=== PATIENT | male | born 1960 | race Caucasian/White ===

== ENCOUNTER → 2019-12-13 | Outpatient (CLI) | payer OTHER | LOC: SJCVCIMAG 10:33 | PROVIDERS: ATTEND Internal Medicine Cardiovascular Disease | DX: I65.23 Occlusion and stenosis of bilateral carotid arteries (principal) ==

== ENCOUNTER → 2019-12-20 | Outpatient (CLI) | payer OTHER | LOC: SJCVCIMAG 07:21 | PROVIDERS: ATTEND Internal Medicine Cardiovascular Disease | DX: I08.1 Rheumatic disorders of both mitral and tricuspid valves (principal); I48.91 Unspecified atrial fibrillation; J44.9 Chronic obstructive pulmonary disease, unspecified; F17.200 Nicotine dependence, unspecified, uncomplicated; Z79.82 Long term (current) use of aspirin; Z79.899 Other long term (current) drug therapy; Z98.890 Other specified postprocedural states; Z95.828 Presence of other vascular implants and grafts; Z86.73 Personal history of transient ischemic attack (TIA), and cerebral infarction without residual deficits ==

== ENCOUNTER → 2020-01-12 | Outpatient (CLI) | payer OTHER | LOC: SJCVCIMAG 12:46 | PROVIDERS: ATTEND Internal Medicine Cardiovascular Disease | DX: I71.00 Dissection of unspecified site of aorta (principal); F17.200 Nicotine dependence, unspecified, uncomplicated ==

== ENCOUNTER → 2020-01-31 | Outpatient (CLI) | payer OTHER ==
[~2020-01-31] MED LIST: ASA81BEC PO; BYSTOLIC10 MG PO; CIALIS5 MG PO; EDARBYCLOR 40-1 EAC1 PO; ELIQUIS5 MG PO; KLOR-CON M2020 MEQ PO; LEXAPRO 10 MG T10 M2 PO; PROAIR HFA8.5 GM INH; ROSUVASTATIN CA20 MG PO
== END ==
LOC: LAB 11:16
PROVIDERS: ATTEND Internal Medicine Cardiovascular Disease
DX: Z01.812 Encounter for preprocedural laboratory examination (principal); Z20.828 Contact with and (suspected) exposure to other viral communicable diseases

== ENCOUNTER → 2020-02-02 | Outpatient (CLI) | payer OTHER ==
[~2020-02-02] VITALS: Ht 190.5 cm; Wt 120.2 kg
[~2020-02-02] MED LIST changes: +PACERONE 200 M200 M1 PO; +STIOLTO RESPIMAT4 GM INH
[2020-02-02 07:28] VITALS: BP 157/100
--- NOTE | 2020-02-02 08:38 | EKG ---
[facility] [place] [address] ELECTROCARDIOGRAM REPORT Name: SHAHEEN CYR Room #: REG [facility]#: [id number] Admission: 02/02/20 Attend Phys: Jimmy Sandoval MD, Discharge: Date of : 58 Report #: [id number] THIS REPORT FOR: cc: Saida Carrasco MD, Molly MD Couchonnal, Luis F. MD ~ THIS REPORT FOR: //name// [facility] Test Date: 2020-02-02 Test Time: 08:30:25 Pat Name: SHAHEEN CYR Department: Room: Gender: [employer]rel [employer]s Solderer: [facility] : 1960 Requested By: Phil Ortiz Order Number: [id number] MD: Itz Walker Measurements Intervals Junction Rate: 54 P: 73 LA: 238 QRS: 76 QRSD: 133 T: 86 QT: 508 QTc: 482 Interpretive Statements Sinus rhythm Prolonged LA interval Nonspecific intraventricular conduction delay Borderline T abnormalities, lateral leads No previous ECG available for comparison Electronically Signed On 02-02-2020 8:37:58 CDT by Itz Walker [email or web address] <ELECTRONICALLY SIGNED> By: Itz Walker MD 02/02/2037 9 9 Itz Walker MD /EPI
== END | disposition home or self-care (01) ==
LOC: CATH 06:38
PROVIDERS: ATTEND Internal Medicine
DX: I48.91 Unspecified atrial fibrillation (principal); I08.1 Rheumatic disorders of both mitral and tricuspid valves; I10 Essential (primary) hypertension; J44.9 Chronic obstructive pulmonary disease, unspecified; E78.00 Pure hypercholesterolemia, unspecified; Z98.890 Other specified postprocedural states; G47.33 Obstructive sleep apnea (adult) (pediatric); Z79.899 Other long term (current) drug therapy; Z86.73 Personal history of transient ischemic attack (TIA), and cerebral infarction without residual deficits

== ENCOUNTER → 2020-02-12 | Outpatient (CLI) | payer OTHER ==
[~2020-02-12] MED LIST changes: -PACERONE 200 M200 M1 PO; -STIOLTO RESPIMAT4 GM INH
== END ==
LOC: LAB 08:10
PROVIDERS: ATTEND Internal Medicine Cardiovascular Disease
DX: Z01.812 Encounter for preprocedural laboratory examination (principal); Z20.828 Contact with and (suspected) exposure to other viral communicable diseases

== ENCOUNTER → 2020-02-12 | Outpatient (CLI) | payer OTHER ==
[2020-02-12 09:49] LABS: ABSOLUTE NEUTROPHILS 6.3 thou/uL (1.4-8.2); BASOPHILS 0.9 % (0.0-2.0); EOSINOPHILS 4.4 % (0.0-3.0); HEMOGLOBIN 14.1 gm/dL (14.0-18.0); LYMPHOCYTES 12.3 % (24.0-44.0); MCH 28.9 pg (26.0-34.0); MCHC 32.8 g/dL (28.0-37.0); MCV 88.1 fL (80.0-100.0); MONOCYTES 8.9 % (1.0-8.0); PLATELET COUNT 274 thou/uL (150-400); POLYS 73.5 % (36.0-66.0); RBC 4.88 mil/uL (4.50-6.00); RDW 14.7 % (10.5-14.5); WBC 8.6 thou/uL (4.0-11.0)
[2020-02-12 10:00] LABS: ALBUMIN 4.4 g/dL (3.4-5.0); CALCIUM 8.7 mg/dL (8.5-10.1); POTASSIUM 3.5 mmol/L (3.5-5.1); TOTAL BILIRUBIN 0.9 mg/dL (0.2-1.0); TOTAL PROTEIN 7.4 g/dL (6.4-8.2)
== END ==
LOC: CAT 09:05
PROVIDERS: ATTEND Internal Medicine Cardiovascular Disease
DX: I25.10 Atherosclerotic heart disease of native coronary artery without angina pectoris (principal); I48.91 Unspecified atrial fibrillation

== ENCOUNTER 2020-02-15 06:38 | Outpatient (CLI) | payer OTHER ==
[~2020-02-15] VITALS: Ht 190.5 cm; Wt 127.0 kg
[2020-02-15] VITALS (13 sets, daily range): BP systolic 137–169; BP diastolic 70–92
--- NOTE | ~2020-02-15 | P ---
[facility] [place] [address] PROCEDURE REPORT Name: SHAHEEN CYR [id number] Admission: 02/15/20 Attend Phys: Itz Walker MD Discharge: 02/16/20 Date of : 58 Report #: [id number] THIS REPORT FOR: cc: Saida Carrasco MD, Molly MD Couchonnal, Luis F. MD ~ CC: Itz Carrasco PREOPERATIVE DIAGNOSIS: Atrial fibrillation. POSTOPERATIVE DIAGNOSIS: Atrial fibrillation. PROCEDURES PERFORMED: 1. Atrial fibrillation ablation, CPT code 37014. 2. 3D mapping, CPT code 10297. 3. Intracardiac echo, CPT code 43300. HISTORY: The patient is a 59-year-old male with a complex cardiac history including recent ascending and descending aortic dissection requiring multiple procedures. He has also been having issues with atrial fibrillation and has failed medication therapy and is here for an ablation. ANESTHESIA: The patient underwent general anesthesia with no anesthesia related complications. DESCRIPTION OF PROCEDURE: The patient underwent informed consent. We discussed the details of the procedure including the risks, which include but not limited to bleeding, infection, vascular damage, cardiac perforation. The patient understood these risks and is willing to proceed. The patient was brought to EP laboratory in fasting and sedated state, prepped and draped in a sterile fashion. I obtained access to the right femoral vein x 3, placing an 8, 9 and 7-Filipino short sheath using the modified Seldinger technique. At baseline, the patient was in atrial fibrillation. A decapolar catheter was placed in the coronary sinus and had some difficulties remaining in this position and therefore, I placed into the right atrium. An ICE catheter was placed in the right atrium and the patient had evidence of a prior left atrial appendage ligation, two left and two right pulmonary veins. The patient did have a large right inferior pulmonary vein, which was later on challenging to isolate. Next, the patient was systemically heparinized and a transseptal was performed using an SL1 sheath and a [place] needle. This was straightforward and in fact the SL1 crossed into the left atrium without having to use the [place] needle to ablate. I then exchanged for the cryo sheath, placed this in the left atrium and then placed a Lasso catheter in the left atrium. At baseline, the patient [address] [address] PROCEDURE REPORT Name: SHAHEEN CYR Room #: DEP [facility]#: [id number] Admission: 02/15/20 Attend Phys: Itz Walker MD Discharge: 02/16/20 Date of : 58 Report #: [id number] was in AFib and was able to map all the veins and then we started by isolating the left superior pulmonary vein. The left superior pulmonary vein underwent a single freeze of 4 minutes duration as the vein isolated within 58 milliseconds. Attempts were at -55 degrees. When the balloon deflated, the patient became bradycardic and had a transient heart block, lasting 7 seconds. This resolved without any pharmacologic maneuver medications. As such, I decided to obtain access to the left femoral vein x 1 and placed a quadripolar catheter into the right ventricle for pacing, if we were to experience any more bradycardic episodes. Fortunately, no further pacing was required throughout the case as this was just an isolated vagal response. I then turned my attention to the left inferior pulmonary vein. This vein underwent a 4-minute freeze followed by a 5-minute freeze. During the 5-minute freeze, the vein isolated at exactly 300 seconds. I thought this would not be sufficient. Therefore, I performed an additional 3-minute freeze with a subselective freeze along the most inferior aspect of the vein. This vein remained isolated for the remainder of the procedure when I checked it later. I then turned my attention to the right superior pulmonary vein. This vein underwent an 180-second freeze as the vein isolated within 45 seconds. There were still some isolated firings from the vein and it was not entirely clear if it was reconnecting, so I went ahead and performed an additional 2-minute freeze. Then, I turned my attention to the right inferior pulmonary vein. This vein was quite challenging. It was quite large. I performed multiple freezes of this vein with very poor temps which resulted in some slowing of the vein. I therefore decided to perform some contrast injections in this vein to get a better sense of what was going on. With contrast injections, I was able to get a better seal and I performed 2 4-minute freezes resulted in isolation within about 60 seconds, but the attempts were only -30 degrees. As soon as we came off the freeze, the vein would reconnect. I therefore looked for lower branch and I was finally able to get my balloon into a lower branch and this injection looked very good. I performed a freeze here and the vein isolated within 38 seconds with a temperature of -54 degrees. This vein was of 200 seconds duration. As such, I removed the cryoballoon from the left atrium and I repeated a voltage map which showed we had created a wide circumferential ablation of the pulmonary veins. The patient underwent a 200 joule synchronized cardioversion with denominational of sinus rhythm. Using intracardiac ultrasound, I verified there was no pericardial effusion. The patient then received systemic protamine and catheters and sheaths were pulled and a bellds-la-hwvze suture with a 3-way stopcock closure was performed. CONCLUSIONS: Successful AFib ablation with isolation of 4 pulmonary veins. Challenging right inferior pulmonary vein isolation due to its large size. By: [id number] Itz Walker MD /nt
[2020-02-15 07:41] LABS: ABSOLUTE NEUTROPHILS 5.9 thou/uL (1.4-8.2); BASOPHILS 1.1 % (0.0-2.0); EOSINOPHILS 5.5 % (0.0-3.0); HEMATOCRIT 41.3 % (42.0-52.0); HEMOGLOBIN 13.6 gm/dL (14.0-18.0); LYMPHOCYTES 13.6 % (24.0-44.0); MCH 28.9 pg (26.0-34.0); MCHC 32.9 g/dL (28.0-37.0); MCV 87.9 fL (80.0-100.0); PLATELET COUNT 256 thou/uL (150-400); POLYS 70.8 % (36.0-66.0); RDW 15.1 % (10.5-14.5); WBC 8.3 thou/uL (4.0-11.0)
[2020-02-15 07:53] LABS: CALCIUM 8.3 mg/dL (8.5-10.1); CREATININE 0.9 mg/dL (0.7-1.3)
[2020-02-15 07:55] LABS: POTASSIUM 2.9 mmol/L (3.5-5.1)
[2020-02-15] MEDS ORDERED: ELIQUIS5 MG PO (07:55)
[2020-02-15] MEDS ORDERED: PROAIR HFA8.5 GM INH (07:55)
[2020-02-15] MEDS ORDERED: ASA81BEC PO (07:56)
[2020-02-15 07:57] LABS: APTT 31.3 Seconds (24.5-32.8); INR 1.1; PROTIME 11.4 Seconds (9.3-11.4)
[2020-02-15 07:59] LABS: ALBUMIN 3.4 g/dL (3.4-5.0); TOTAL BILIRUBIN 0.9 mg/dL (0.2-1.0); TOTAL PROTEIN 7.2 g/dL (6.4-8.2)
[2020-02-15] MEDS ORDERED: STIOLTO RESPIMAT4 GM INH (08:04)
[2020-02-15] MEDS ORDERED: PACERONE 200 M200 M1 PO (16:33)
[2020-02-16 04:20] VITALS: BP 141/69
--- NOTE | 2020-02-16 05:28 | NUR ---
ASSUMED CARE OF PATIENT AT 1900; ASSESSMENTS CHARTED; PATIENT ON BEDREST PER PROVIDER ORDER; SR ON MONITOR; POST-AFIB ABLATION, RT GROIN SITE C/D/I WITH NO HEMATOMA; PULSES EQUAL BILATERAL 2+; NO C/O OF PAIN; CALLS APPROPRIATELY; CONTINUE POC.
[2020-02-16] MEDS ORDERED: PACERONE 200 M200 M1 PO (07:33)
[2020-02-16 07:40] VITALS: BP 140/94
[2020-02-16 08:19] LABS: CALCIUM 8.1 mg/dL (8.5-10.1); CREATININE 1.2 mg/dL (0.7-1.3); POTASSIUM 3.8 mmol/L (3.5-5.1)
--- NOTE | 2020-02-16 09:36 | NUR ---
RECEIVED PT'S CARE AROUND 0710; PT. ON BED; ALERT; SB ON THE MONITOR; ST. WANTS TO GET UP FROM BED & WALK AROUND; EDUCATED ABOUT D/C [place]BR[place] & MOVING BEFORE BEING D/C; R & L SIDE C/D/I; DURING AM ASSESSMENT NO C/O PAIN; AM MEDICATION GIVEN; EDUCATED ABOUT AM MEDICATION; ST. UNDERSTANDING; EDUCATED ABOUT D/C PROCESS; ST. UNDERSTANDING; ASSESSMENT CHARGED; FOLLOWING POC; WORKING ON D/C PAPERS;
[2020-02-16 09:45] VITALS: BP 140/94
== END 2020-02-16 10:21 | disposition home or self-care (01) ==
LOC: CATH 06:38 → 2N 14:07 → CATH 02-16 10:21
PROVIDERS: Nurse Practitioner; ATTEND Internal Medicine Cardiovascular Disease
DX: I48.91 Unspecified atrial fibrillation (principal); I11.0 Hypertensive heart disease with heart failure; I50.9 Heart failure, unspecified; E78.00 Pure hypercholesterolemia, unspecified; G47.33 Obstructive sleep apnea (adult) (pediatric); I42.9 Cardiomyopathy, unspecified; J43.9 Emphysema, unspecified; E78.5 Hyperlipidemia, unspecified; E66.09 Other obesity due to excess calories; Z98.890 Other specified postprocedural states; Z79.899 Other long term (current) drug therapy; Z82.49 Family history of ischemic heart disease and other diseases of the circulatory system; Z87.891 Personal history of nicotine dependence; Z86.73 Personal history of transient ischemic attack (TIA), and cerebral infarction without residual deficits; Z79.01 Long term (current) use of anticoagulants
CPT/HCPCS: 10797; 62110; 62900; 65020; 65040; 70005

== ENCOUNTER → 2020-02-20 | Outpatient (CLI) | payer OTHER ==
[~2020-02-20] MED LIST changes: +PACERONE 200 M200 M1 PO; +STIOLTO RESPIMAT4 GM INH
== END ==
LOC: SJCVCIMAG 07:51
PROVIDERS: ATTEND Internal Medicine Cardiovascular Disease
DX: I08.1 Rheumatic disorders of both mitral and tricuspid valves (principal); I27.20 Pulmonary hypertension, unspecified; I48.91 Unspecified atrial fibrillation; Z87.891 Personal history of nicotine dependence

== ENCOUNTER → 2021-03-19 | Outpatient (CLI) | payer OTHER | LOC: SJCVCIMAG 09:33 | PROVIDERS: ATTEND Internal Medicine Cardiovascular Disease | DX: I08.1 Rheumatic disorders of both mitral and tricuspid valves (principal); R00.1 Bradycardia, unspecified; I42.9 Cardiomyopathy, unspecified; J44.9 Chronic obstructive pulmonary disease, unspecified; I10 Essential (primary) hypertension; Z98.890 Other specified postprocedural states ==